=== PATIENT | male | born 1960 | race Caucasian/White ===

== ENCOUNTER 2024-02-22 12:30 | Emergency (ER) | payer MEDICARE, OTHER ==
[~2024-02-22] VITALS: Ht 182.9 cm; Wt 88.0 kg
[2024-02-22 13:31] VITALS: BP 150/79; PULSE 80; RESP 18; TEMP 98; O2SAT 98
[2024-02-22] MEDS ORDERED: CEPH500C PO (13:41)
== END 2024-02-22 14:33 | disposition home or self-care (01) ==
LOC: ER 12:35
DX: S61.336A Puncture wound without foreign body of right little finger with damage to nail, initial encounter (principal); Z88.1 Allergy status to other antibiotic agents; Z79.899 Other long term (current) drug therapy; Z91.041 Radiographic dye allergy status; W20.8XXA Other cause of strike by thrown, projected or falling object, initial encounter; Y93.89 Activity, other specified; Y92.89 Other specified places as the place of occurrence of the external cause; Y99.8 Other external cause status
CPT/HCPCS: 11730; 73140; 82962